=== PATIENT | male | born 1960 | race African-American/Black ===

== ENCOUNTER 2019-03-28 16:26 | Inpatient (IN) ==
[2019-03-28] MEDS ORDERED: THIAMINE 200 MG/2 ML VIAL IV STA (16:45)
[2019-03-28] MEDS ORDERED: SODIUM CHLORIDE 0.9% 2,000 ML IV STA (16:45)
[2019-03-28] MEDS ORDERED: INSULIN REGULAR 100 UNIT/ML IV STA (16:47)
[2019-03-28 16:59] LABS: Basophils % 0.1 % (0.0-0.8); Hematocrit 34.5 VOL% (35.7-47.0); Hemoglobin 11.3 GM/DL (12.0-16.0); Immature Granulocytes % 0.8 %; Immature Granulocytes Absolute 0.12 #; Lymphocytes # 0.5 10*3/uL (1.4-4.0); Lymphocytes % 3.5 % (21.3-54.2); Mean Corpuscular HGB Conc 32.8 GM/DL (32-36); Mean Corpuscular Volume 93.8 FL (87-102); Mean Platelet Volume 10.7 FL (9.6-12.0); Monocytes % 7.6 % (1.7-12.7); Platelet Count 210 T/CUMM (130-400); Red Blood Count 3.68 MC/CUMM (3.8-5.5); Red Cell Distribution Width 12.2 % (9.3-17.3); White Blood Count 15.5 T/CUMM (4-12)
[2019-03-28 17:18] LABS: ABG HCO3 14.4 MMOL/L (20-26); ABG Oxygen Saturation 97.4 % (95-100); ABG PCO2 45.1 MM HG (35-48); ABG TCO2 14.7 MMOL/L (23-27)
[2019-03-28 17:21] LABS: ABG PH 7.149 (7.35-7.45)
[2019-03-28 17:21] LABS: PT Patient Result 10.5 SECS (9.6-12.2)
[2019-03-28] MEDS ORDERED: SODIUM BICARBONATE 50 MEQ/50 ML VIAL IV STA (17:21)
[2019-03-28] MEDS ORDERED: SODIUM BICARBONATE 10 MEQ/10 ML SYRINGE IV ONE (17:22)
[2019-03-28 17:23] LABS: Alanine Aminotransferase 15 U/L (13-56); Albumin 3.5 G/DL (3.4-5.0); Alkaline Phosphatase 100 U/L (45-117); Aspartate Amino Transferase 11 U/L (0-37); Blood Urea Nitrogen 106 MG/DL (7-18); Calcium 8.4 MG/DL (8.5-10.1); Estimated Glom Filtration Rate 15 ML/MIN; Osmolality,Calculated 346.5 MOS/KG (273-304); Total Protein 6.4 G/DL (6.4-8.3)
[2019-03-28 17:30] LABS: Glucose 769 MG/DL (74-106)
[2019-03-28 17:31] LABS: Acanthocytes 1+; Anisocytosis Slight; Lymphocytes 10 % (20-55); Segmented Neutrophils 83 % (50-85); Total Cells Counted 100
[2019-03-28 17:32] LABS: Platelet Estimate Adequate
[2019-03-28 18:16] LABS: Apearance,Urine CLOUDY (Clear); Bacteria,Urine Occasional /HPF (Few); Bilirubin,Urine Negative (Negative); Blood, Urine Small mg/dL (Negative); Glucose,Urine (UA) >=500 mg/dL (Negative); Hyaline Casts,Urine 85 /LPF (0-3); Ketones,Urine 5 mg/dL (Negative); Nitrite,Urine Negative (Negative); Protein,Urine Negative; RBC,Urine 2 /HPF (0-4); Squamous Epithelial Cell,Urine Occasional /HPF (0-10); Urine Color Yellow (Yellow); Urine Specific Gravity 1.014 (1.001-1.035); Urine Urobilinogen < 2.0 EU/DL (0.2-1.0)
[2019-03-28 18:19] LABS: Barbiturates Screen,Urine Negative (Negative); Benzodiazepines Screen,Urine Negative (Negative); Cannabinoid Screen,Urine Negative (Negative); Opiate Screen,Urine Negative (Negative); Phencyclidine Screen,Urine Negative (Negative)
[2019-03-28] MEDS ORDERED: ONDANSETRON 4 MG/2 ML VIAL IV PRN (18:23)
[2019-03-28] MEDS ORDERED: cefTRIAXone 2,000 MG in SODIUM CHLORIDE 0.9% 100 ML IV ONE (18:23)
[2019-03-28] MEDS ORDERED: VANCOMYCIN INJ 750 MG in SODIUM CHLORIDE 0.9% 250 ML IV STA (18:23)
[2019-03-28] MEDS ORDERED: ALBUTEROL 2.5 MG/3 ML NEB RESP TX PRN (18:23)
[2019-03-28] MEDS ORDERED: NOREPINEPHRINE 8 MG in SODIUM CHLORIDE 0.9% 242 ML IV PRN (18:23)
[2019-03-28] MEDS ORDERED: cefTRIAXone 1,000 MG VIAL ONE (18:24)
[2019-03-28] MEDS ORDERED: SODIUM PHOSPHATE IV PRN (18:27)
[2019-03-28] MEDS ORDERED: DEXTROSE 10% 250 ML BAG IV PRN (18:27)
[2019-03-28] MEDS ORDERED: SODIUM BICARB INJ 100 MEQ in STERILE WATER INJ 400 ML IV PRN (18:27)
[2019-03-28] MEDS ORDERED: MAGNESIUM SULF RIDER 4 GM in PREMIX 1 EACH IV PRN (18:27)
[2019-03-28] MEDS ORDERED: SODIUM CHLORIDE 0.9% IV PRN (18:27)
[2019-03-28] MEDS ORDERED: MAGNESIUM SULF RIDER 2 GM in PREMIX 1 EACH IV PRN (18:27)
[2019-03-28] MEDS ORDERED: INSULIN REGULAR 100 UNIT/ML IV ONE (18:27)
[2019-03-28] MEDS ORDERED: POTASSIUM CHLORIDE RIDER 10 MEQ in PREMIX 1 EACH IV PRN (18:27)
[2019-03-28] MEDS ORDERED: INSULIN REGULAR DRIP 100 ML IV SCH (18:30)
[2019-03-28] MEDS ORDERED: NOREPINEPHRINE 4 MG/4 ML VIAL IV ONE (18:31)
[2019-03-28] MEDS: SODIUM CHLOR 0.45% KCL 20 MEQ 20 MEQ/1,000 ML BAG IV SCH ×2 (19:43→23:48)
[2019-03-28 20:09] LABS: Calcium 7.9 MG/DL (8.5-10.1); Osmolality,Calculated 344.3 MOS/KG (273-304)
[2019-03-28] MEDS: FAMOTIDINE 20 MG/2 ML VIAL IV SCH (21:24)
[2019-03-28] MEDS: ENOXAPARIN 30 MG/0.3 ML SYRINGE SUBCUT SCH (21:24)
[2019-03-28] MEDS ORDERED: SODIUM CHLORIDE 0.9% 1,000 ML IV SCH (23:27)
[2019-03-29] LABS: Calcium 7.6 MG/DL (8.5-10.1); Osmolality,Calculated 319.8 MOS/KG (273-304)
[2019-03-29] MEDS: DEXT 5% NACL 0.45% KCL 20 MEQ 20 MEQ/1,000 ML BAG IV SCH ×6 (00:31→23:28)
[2019-03-29] MEDS ORDERED: NOREPINEPHRINE 8 MG in SODIUM CHLORIDE 0.9% 242 ML IV PRN (01:30)
[2019-03-29 03:32] LABS: Basophils % 0.1 % (0.0-0.8); Hematocrit 26.5 VOL% (42.0-52.0); Hemoglobin 9.2 GM/DL (14.0-18.0); Immature Granulocytes % 0.4 %; Immature Granulocytes Absolute 0.07 #; Lymphocytes # 0.8 10*3/uL (1.4-4.0); Mean Corpuscular HGB Conc 34.7 GM/DL (32-36); Mean Platelet Volume 9.9 FL (9.6-12.0); Monocytes % 7.1 % (1.7-12.7); Neutrophils % 87.4 % (38.7-73.9); Platelet Count 177 T/CUMM (130-400); Red Blood Count 3.01 MC/CUMM (3.8-5.5); Red Cell Distribution Width 12.4 % (9.3-17.3); White Blood Count 16.7 T/CUMM (4-12)
[2019-03-29 03:52] LABS: Calcium 7.5 MG/DL (8.5-10.1); Osmolality,Calculated 320.8 MOS/KG (273-304)
[2019-03-29] MEDS: SODIUM CHLOR 0.45% KCL 20 MEQ 20 MEQ/1,000 ML BAG IV SCH (03:55)
[2019-03-29] MEDS ORDERED: DEXTROSE 50% 25 GM/50 ML VIAL IV PRN (06:27)
[2019-03-29] MEDS ORDERED: GLUCAGON 1 MG VIAL IM PRN (06:27)
[2019-03-29] MEDS ORDERED: INSULIN REGULAR 100 UNIT/ML SUBCUT SCH (08:00)
[2019-03-29 08:25] LABS: Calcium 7.6 MG/DL (8.5-10.1); Osmolality,Calculated 318.6 MOS/KG (273-304)
[2019-03-29] MEDS ORDERED: INSULIN REGULAR DRIP 100 ML IV PRN (10:01)
[2019-03-29] MEDS: LACTULOSE 20 GM/30 ML UDCUP PO SCH ×2 (10:07→20:51)
[2019-03-29] MEDS ORDERED: SODIUM CHLORIDE 0.45% 1,000 ML IV SCH (11:27)
[2019-03-29 12:00] LABS: Calcium 7.5 MG/DL (8.5-10.1); Osmolality,Calculated 314.8 MOS/KG (273-304)
[2019-03-29 15:39] LABS: Calcium 7.2 MG/DL (8.5-10.1); Osmolality,Calculated 318.1 MOS/KG (273-304)
[2019-03-29] MEDS: DEXTROSE 10% 250 ML BAG IV PRN (19:52)
[2019-03-29] MEDS: cefTRIAXone 1,000 MG in SYRINGE 1 EACH IV SCH (20:51)
[2019-03-29] MEDS: FAMOTIDINE 20 MG/2 ML VIAL IV SCH (20:51)
[2019-03-29] MEDS: ENOXAPARIN 30 MG/0.3 ML SYRINGE SUBCUT SCH (20:51)
[2019-03-30] MEDS: DEXTROSE 10% 250 ML BAG IV PRN ×2 (00:23→15:30)
[2019-03-30 04:44] LABS: Basophils % 0.2 % (0.0-0.8); Hematocrit 29.5 VOL% (42.0-52.0); Hemoglobin 10.2 GM/DL (14.0-18.0); Immature Granulocytes % 0.6 %; Immature Granulocytes Absolute 0.05 #; Lymphocytes # 0.6 10*3/uL (1.4-4.0); Lymphocytes % 6.6 % (21.2-54.2); Mean Corpuscular HGB Conc 34.6 GM/DL (32-36); Mean Corpuscular Volume 88.9 FL (87-102); Mean Platelet Volume 10.4 FL (9.6-12.0); Monocytes % 3.5 % (1.7-12.7); Neutrophils % 89.1 % (38.7-73.9); Platelet Count 138 T/CUMM (130-400); Red Blood Count 3.32 MC/CUMM (3.8-5.5); Red Cell Distribution Width 12.3 % (9.3-17.3); White Blood Count 8.3 T/CUMM (4-12)
[2019-03-30 05:14] LABS: Band Neutrophils 13 % (0-10); Hypochromasia 1+; Lymphocytes 10 % (20-55); Platelet Estimate Normal; Segmented Neutrophils 75 % (50-85); Total Cells Counted 100
[2019-03-30 05:20] LABS: Calcium 7.6 MG/DL (8.5-10.1); Osmolality,Calculated 298.1 MOS/KG (273-304)
[2019-03-30] MEDS: DEXT 5% NACL 0.45% KCL 20 MEQ 20 MEQ/1,000 ML BAG IV SCH ×2 (07:29→07:30)
[2019-03-30] MEDS ORDERED: CALCIUM GLUCONATE 1,000 MG in SODIUM CHLORIDE 0.9% 100 ML IV ONE (07:53)
[2019-03-30] MEDS ORDERED: SODIUM CHLORIDE 0.9% 1,000 ML IV ONE (07:55)
[2019-03-30] MEDS: LACTULOSE 20 GM/30 ML UDCUP PO SCH ×2 (08:38→20:27)
[2019-03-30] MEDS: ATORVASTATIN 40 MG TABLET PO SCH (08:38)
[2019-03-30] MEDS: INSULIN LISPRO 100 UNIT/ML SUBCUT SCH ×4 (08:39→20:36)
[2019-03-30] MEDS: RANITIDINE 150 MG TABLET PO SCH (08:39)
[2019-03-30] MEDS: ASPIRIN 325 MG TABLET PO SCH (08:39)
[2019-03-30] MEDS: CALCIUM CARBONATE CHEW 500 MG TABLET PO SCH ×2 (08:39→20:27)
[2019-03-30] MEDS ORDERED: ZIPRASIDONE 20 MG/1 ML VIAL IM PRN (10:48)
[2019-03-30] MEDS ORDERED: INSULIN LISPRO 100 UNIT/ML SUBCUT SCH (11:30)
[2019-03-30] MEDS: cefTRIAXone 1,000 MG in SYRINGE 1 EACH IV SCH (20:27)
[2019-03-30] MEDS: ENOXAPARIN 30 MG/0.3 ML SYRINGE SUBCUT SCH (20:27)
[2019-03-31 06:35] LABS: Basophils % 0.3 % (0.0-0.8); Hematocrit 30.6 VOL% (42.0-52.0); Hemoglobin 10.2 GM/DL (14.0-18.0); Immature Granulocytes % 1.2 %; Immature Granulocytes Absolute 0.08 #; Lymphocytes # 0.4 10*3/uL (1.4-4.0); Lymphocytes % 5.2 % (21.2-54.2); Mean Corpuscular HGB Conc 33.3 GM/DL (32-36); Mean Corpuscular Volume 91.6 FL (87-102); Mean Platelet Volume 11.5 FL (9.6-12.0); Monocytes % 3.6 % (1.7-12.7); Neutrophils % 89.7 % (38.7-73.9); Platelet Count 145 T/CUMM (130-400); Red Blood Count 3.34 MC/CUMM (3.8-5.5); Red Cell Distribution Width 12.9 % (9.3-17.3); White Blood Count 6.7 T/CUMM (4-12)
[2019-03-31 06:56] LABS: Band Neutrophils 10 % (0-10); Lymphocytes 6 % (20-55); Segmented Neutrophils 80 % (50-85); Total Cells Counted 100
[2019-03-31 06:56] LABS: Calcium 8.5 MG/DL (8.5-10.1); Osmolality,Calculated 290.1 MOS/KG (273-304)
[2019-03-31 06:57] LABS: Hypochromasia 1+; Platelet Estimate Adequate
[2019-03-31] MEDS: ASPIRIN 325 MG TABLET PO SCH (09:12)
[2019-03-31] MEDS: CALCIUM CARBONATE CHEW 500 MG TABLET PO SCH ×2 (09:12→21:21)
[2019-03-31] MEDS: LACTULOSE 20 GM/30 ML UDCUP PO SCH ×2 (09:12→21:21)
[2019-03-31] MEDS: RANITIDINE 150 MG TABLET PO SCH (09:13)
[2019-03-31] MEDS: ATORVASTATIN 40 MG TABLET PO SCH (09:13)
[2019-03-31] MEDS: INSULIN LISPRO 100 UNIT/ML SUBCUT SCH (09:17)
[2019-03-31] MEDS ORDERED: POTASSIUM CHLORIDE RIDER 20 MEQ in PREMIX 1 EACH IV PRN (09:59)
[2019-03-31] MEDS ORDERED: methylPREDNISolone SOD SUC 40 MG/1 ML VIAL IV ONE (10:00)
[2019-03-31] MEDS ORDERED: MEPERIDINE 25 MG/1 ML VIAL IV PRN (10:00)
[2019-03-31] MEDS ORDERED: VANCOMYCIN INJ 1,250 MG in SODIUM CHLORIDE 0.9% 250 ML IV ONE (10:00)
[2019-03-31 10:03] LABS: Basophils % 0.7 % (0.0-0.8); Hematocrit 31.7 VOL% (42.0-52.0); Hemoglobin 10.3 GM/DL (14.0-18.0); Immature Granulocytes % 0.9 %; Immature Granulocytes Absolute 0.05 #; Lymphocytes # 0.9 10*3/uL (1.4-4.0); Lymphocytes % 16.2 % (21.2-54.2); Mean Corpuscular HGB Conc 32.5 GM/DL (32-36); Mean Corpuscular Volume 93.8 FL (87-102); Mean Platelet Volume 11.4 FL (9.6-12.0); Monocytes % 3.7 % (1.7-12.7); Neutrophils % 78.5 % (38.7-73.9); Platelet Count 120 T/CUMM (130-400); Red Blood Count 3.38 MC/CUMM (3.8-5.5); Red Cell Distribution Width 12.9 % (9.3-17.3); White Blood Count 5.4 T/CUMM (4-12)
[2019-03-31] MEDS: NOREPINEPHRINE 8 MG in SODIUM CHLORIDE 0.9% 242 ML IV PRN ×3 (10:15→19:00)
[2019-03-31 10:16] LABS: PT Patient Result 11.3 SECS (9.6-12.2)
[2019-03-31] MEDS ORDERED: NOREPINEPHRINE 4 MG/4 ML VIAL IV ONE (10:16)
[2019-03-31] MEDS ORDERED: SODIUM CHLORIDE 0.9% 1,000 ML IV ONE ×3 (10:19→23:04)
[2019-03-31 10:21] LABS: Band Neutrophils 4 % (0-10); Lymphocytes 21 % (20-55); Segmented Neutrophils 69 % (50-85); Total Cells Counted 100
[2019-03-31 10:21] LABS: ABG Base Excess -4.7 MMOL/L (-2.5-2.5); ABG HCO3 20.5 MMOL/L (20-26); ABG Oxygen Saturation 99.3 % (95-100); ABG PCO2 60.7 MM HG (35-48); ABG TCO2 22.5 MMOL/L (23-27)
[2019-03-31 10:22] LABS: Ovalocytes Slight
[2019-03-31 10:23] LABS: Partial Thromboplastin Time 44.6 SECS (20.8-36.0)
[2019-03-31 10:23] LABS: ABG PH 7.205 (7.35-7.45)
[2019-03-31 10:37] LABS: Blood Urea Nitrogen 30 MG/DL (7-18); Calcium 8.3 MG/DL (8.5-10.1); Estimated Glom Filtration Rate 56 ML/MIN; Glucose 223 MG/DL (74-106); Osmolality,Calculated 298.8 MOS/KG (273-304)
[2019-03-31 10:38] LABS: Troponin I 0.113 NG/ML (0.00-0.045)
[2019-03-31] MEDS ORDERED: CISATRACURIUM 10 MG/5 ML VIAL IV ONE (11:00)
[2019-03-31] MEDS: fentaNYL INJ 1,250 MCG in SODIUM CHLORIDE 0.9% 225 ML IV PRN (11:16)
[2019-03-31] MEDS: CISATRACURIUM 200 MG in SODIUM CHLORIDE 0.9% 180 ML IV SCH (11:50)
[2019-03-31] MEDS ORDERED: SODIUM BICARBONATE 50 MEQ/50 ML SYRINGE IV ONE (12:57)
[2019-03-31] MEDS ORDERED: AMIODARONE 150 MG/3 ML VIAL ONE (12:57)
[2019-03-31] MEDS ORDERED: AMIODARONE INJ 150 MG in DEXTROSE 5% 100 ML IV ONE (13:04)
[2019-03-31 13:07] LABS: ABG Base Excess -7.8 MMOL/L (-2.5-2.5); ABG Oxygen Saturation 89.3 % (95-100); ABG PCO2 50.6 MM HG (35-48); ABG PH 7.211 (7.35-7.45); ABG PO2 67.5 MM HG (80-95); ABG TCO2 18.8 MMOL/L (23-27)
[2019-03-31] MEDS ORDERED: SODIUM BICARBONATE 50 MEQ/50 ML VIAL IV ONE (13:07)
[2019-03-31 13:14] LABS: Hematocrit 31.8 VOL% (42.0-52.0); Hemoglobin 10.1 GM/DL (14.0-18.0); Immature Granulocytes Absolute 0.01 #; Lymphocytes # 0.1 10*3/uL (1.4-4.0); Lymphocytes % 10.8 % (21.2-54.2); Mean Corpuscular HGB Conc 31.8 GM/DL (32-36); Mean Corpuscular Volume 95.2 FL (87-102); Monocytes % 6.9 % (1.7-12.7); Neutrophils % 80.3 % (38.7-73.9); Platelet Count 159 T/CUMM (130-400); Red Blood Count 3.34 MC/CUMM (3.8-5.5)
[2019-03-31 13:29] LABS: Calcium 8.1 MG/DL (8.5-10.1)
[2019-03-31] MEDS ORDERED: HEPARIN DRIP 25,000 UNITS/500 ML PREMIX IV SCH (13:30)
[2019-03-31] MEDS ORDERED: AMIODARONE INJ 450 MG in DEXTROSE 5% 241 ML IV SCH (13:30)
[2019-03-31 13:33] LABS: Albumin 1.8 G/DL (3.4-5.0); Bilirubin,Total 0.7 MG/DL (0.2-1.0); Calcium 7.8 MG/DL (8.5-10.1); Osmolality,Calculated 300.8 MOS/KG (273-304); Total Protein 4.8 G/DL (6.4-8.3)
[2019-03-31 13:38] LABS: Troponin I 0.119 NG/ML (0.00-0.045)
[2019-03-31] MEDS ORDERED: VANCOMYCIN INJ 1,000 MG in SODIUM CHLORIDE 0.9% 250 ML IV PRN (14:00)
[2019-03-31 14:15] LABS: Band Neutrophils 15 % (0-10); Lymphocytes 16 % (20-55); Metamyelocytes 13 %; Nucleated Red Blood Cells 3 (0-5); Segmented Neutrophils 48 % (50-85); Total Cells Counted 100
[2019-03-31 14:16] LABS: Anisocytosis Slight; Burr Cells 3+; Macrocytosis Slight; Platelet Estimate Normal
[2019-03-31] MEDS: MIDAZOLAM 100 MG in SODIUM CHLORIDE 0.9% 80 ML IV PRN (14:29)
[2019-03-31] MEDS ORDERED: PHENYLEPHRINE DRIP 40 MG/250 ML PREMIX IV PRN (14:43)
[2019-03-31] MEDS: PANTOPRAZOLE 40 MG VIAL IV SCH (14:51)
[2019-03-31] MEDS: INSULIN REGULAR 100 UNIT/ML IV SCH ×4 (15:03→23:25)
[2019-03-31 16:42] LABS: Troponin I 0.161 NG/ML (0.00-0.045)
[2019-03-31] MEDS: MINERAL OIL/PETROLATUM OPH OINT 3.5 GM TUBE BOTH EYES SCH ×2 (17:36→21:26)
[2019-03-31 18:19] LABS: Troponin I 0.151 NG/ML (0.00-0.045)
[2019-03-31 18:25] LABS: Hematocrit 30.4 VOL% (42.0-52.0); Hemoglobin 9.8 GM/DL (14.0-18.0); Lymphocytes # 0.1 10*3/uL (1.4-4.0); Mean Corpuscular HGB Conc 32.2 GM/DL (32-36); Mean Corpuscular Volume 94.1 FL (87-102); Mean Platelet Volume 10.4 FL (9.6-12.0); Monocytes % 5.7 % (1.7-12.7); Neutrophils % 74.3 % (38.7-73.9); Platelet Count 102 T/CUMM (130-400); Red Blood Count 3.23 MC/CUMM (3.8-5.5); Red Cell Distribution Width 12.9 % (9.3-17.3)
[2019-03-31 18:32] LABS: White Blood Count 0.7 T/CUMM (4-12)
[2019-03-31 18:57] LABS: Band Neutrophils 4 % (0-10); Lymphocytes 16 % (20-55); Metamyelocytes 20 %; Segmented Neutrophils 48 % (50-85); Total Cells Counted 100
[2019-03-31 18:58] LABS: Burr Cells 2+; Platelet Estimate Adequate; Poikilocytosis 2+
[2019-03-31] MEDS: PHENYLEPHRINE INJ 160 MG in SODIUM CHLORIDE 0.9% 234 ML IV PRN (20:00)
[2019-03-31 20:07] LABS: Amorphous Crystals,Urine Occasional /HPF (Few); Apearance,Urine CLOUDY (Clear); Bilirubin,Urine Negative (Negative); Blood, Urine Moderate mg/dL (Negative); Glucose,Urine (UA) >=500 mg/dL (Negative); Hyaline Casts,Urine 1 /LPF (0-3); Ketones,Urine 5 mg/dL (Negative); Mucus,Urine Occasional /LPF (Occasional); Nitrite,Urine Negative (Negative); Protein,Urine Negative; Squamous Epithelial Cell,Urine Occasional /HPF (0-10); Urine Color Yellow (Yellow); Urine Specific Gravity 1.022 (1.001-1.035); Urine Urobilinogen < 2.0 EU/DL (0.2-1.0)
[2019-03-31] MEDS: methylPREDNISolone SOD SUC 40 MG/1 ML VIAL IV SCH (20:39)
[2019-03-31] MEDS: cefTRIAXone 1,000 MG in SYRINGE 1 EACH IV SCH (20:39)
[2019-03-31 20:44] LABS: Blood Urea Nitrogen 30 MG/DL (7-18); Estimated Glom Filtration Rate 67 ML/MIN; Glucose 248 MG/DL (74-106); Osmolality,Calculated 305.4 MOS/KG (273-304)
[2019-03-31 20:45] LABS: Calcium 7.6 MG/DL (8.5-10.1)
[2019-03-31] MEDS: SODIUM CHLORIDE 0.9% 1,000 ML IV SCH (21:23)
[2019-03-31] MEDS: AMIODARONE INJ 450 MG in DEXTROSE 5% 241 ML IV SCH (21:52)
[2019-03-31] MEDS: NOREPINEPHRINE 16 MG in SODIUM CHLORIDE 0.9% 234 ML IV PRN (22:11)
[2019-03-31 22:47] LABS: ABG HCO3 20.1 MMOL/L (20-26); ABG Oxygen Saturation 91.3 % (95-100); ABG PCO2 42.2 MM HG (35-48); ABG PH 7.295 (7.35-7.45); ABG PO2 67.1 MM HG (80-95); ABG TCO2 21.4 MMOL/L (23-27)
[2019-03-31 23:46] LABS: INR 1.2; PT Patient Result 13.4 SECS (9.6-12.2)
[2019-04-01 00:40] LABS: Partial Thromboplastin Time > 320.0 SECS (20.8-36.0)
[2019-04-01 00:40] LABS: Blood Urea Nitrogen 27 MG/DL (7-18); Calcium 6.9 MG/DL (8.5-10.1); Estimated Glom Filtration Rate 73 ML/MIN; Glucose 185 MG/DL (74-106); Osmolality,Calculated 303.3 MOS/KG (273-304)
[2019-04-01 01:10] LABS: Basophils % 1.2 % (0.0-0.8); Hematocrit 27.7 VOL% (42.0-52.0); Hemoglobin 9.1 GM/DL (14.0-18.0); Immature Granulocytes % 1.2 %; Immature Granulocytes Absolute 0.01 #; Lymphocytes # 0.1 10*3/uL (1.4-4.0); Lymphocytes % 13.6 % (21.2-54.2); Mean Corpuscular HGB Conc 32.9 GM/DL (32-36); Mean Platelet Volume 10.9 FL (9.6-12.0); Monocytes % 9.9 % (1.7-12.7); Neutrophils % 74.1 % (38.7-73.9); Platelet Count 100 T/CUMM (130-400); Red Blood Count 2.98 MC/CUMM (3.8-5.5); Red Cell Distribution Width 13.1 % (9.3-17.3)
[2019-04-01 01:17] LABS: White Blood Count 0.8 T/CUMM (4-12)
[2019-04-01] MEDS: fentaNYL INJ 1,250 MCG in SODIUM CHLORIDE 0.9% 225 ML IV PRN ×3 (01:28→21:22)
[2019-04-01 02:31] LABS: Band Neutrophils 8 % (0-10); Eosinophils 2 % (0-10); Lymphocytes 12 % (20-55); Metamyelocytes 30 %; Myelocytes 8 %; Segmented Neutrophils 28 % (50-85)
[2019-04-01 02:43] LABS: Hypochromasia Slight; Platelet Estimate Decreased
[2019-04-01 02:44] LABS: Burr Cells 2+; Total Cells Counted 100
[2019-04-01] MEDS: PHENYLEPHRINE INJ 160 MG in SODIUM CHLORIDE 0.9% 234 ML IV PRN ×3 (03:17→18:33)
[2019-04-01 03:20] LABS: ABG Base Excess -5.9 MMOL/L (-2.5-2.5); ABG HCO3 19.6 MMOL/L (20-26); ABG Oxygen Saturation 98.7 % (95-100); ABG PCO2 43.2 MM HG (35-48); ABG PH 7.289 (7.35-7.45); ABG TCO2 18.1 MMOL/L (23-27)
[2019-04-01] MEDS: INSULIN REGULAR 100 UNIT/ML IV SCH ×5 (03:23→21:27)
[2019-04-01] MEDS: NOREPINEPHRINE 16 MG in SODIUM CHLORIDE 0.9% 234 ML IV PRN ×2 (05:33→16:21)
[2019-04-01 06:05] LABS: Hematocrit 27.2 VOL% (42.0-52.0); Hemoglobin 8.7 GM/DL (14.0-18.0); Lymphocytes # 0.1 10*3/uL (1.4-4.0); Lymphocytes % 13.3 % (21.2-54.2); Mean Corpuscular Volume 93.5 FL (87-102); Mean Platelet Volume 10.9 FL (9.6-12.0); Monocytes % 7.1 % (1.7-12.7); Neutrophils % 79.6 % (38.7-73.9); Red Blood Count 2.91 MC/CUMM (3.8-5.5)
[2019-04-01 06:07] LABS: Platelet Count 88 T/CUMM (130-400)
[2019-04-01] MEDS: SODIUM CHLORIDE 0.9% 1,000 ML IV SCH (06:15)
[2019-04-01 06:35] LABS: Blood Urea Nitrogen 28 MG/DL (7-18); Calcium 6.8 MG/DL (8.5-10.1); Estimated Glom Filtration Rate 85 ML/MIN; Glucose 156 MG/DL (74-106); Osmolality,Calculated 302.3 MOS/KG (273-304)
[2019-04-01 06:36] LABS: Troponin I 0.114 NG/ML (0.00-0.045)
[2019-04-01 06:57] LABS: Anisocytosis 1+; Band Neutrophils 38 % (0-10); Lymphocytes 20 % (20-55); Macrocytosis 1+; Metamyelocytes 16 %; Myelocytes 6 %; Platelet Estimate Decreased; Segmented Neutrophils 6 % (50-85); Total Cells Counted 100
[2019-04-01 06:59] LABS: Atypical Lymphocytes Few; Hypochromasia 2+
[2019-04-01] MEDS: PANTOPRAZOLE 40 MG VIAL IV SCH (08:32)
[2019-04-01] MEDS: methylPREDNISolone SOD SUC 40 MG/1 ML VIAL IV SCH ×2 (08:41→21:32)
[2019-04-01] MEDS ORDERED: AMIODARONE 200 MG TABLET PO SCH (09:00)
[2019-04-01] MEDS: ASPIRIN 325 MG TABLET PO SCH (09:05)
[2019-04-01] MEDS: LACTULOSE 20 GM/30 ML UDCUP PO SCH (09:06)
[2019-04-01] MEDS: ATORVASTATIN 40 MG TABLET PO SCH (09:07)
[2019-04-01] MEDS: MINERAL OIL/PETROLATUM OPH OINT 3.5 GM TUBE BOTH EYES SCH ×2 (09:07→21:37)
[2019-04-01] MEDS: CALCIUM CARBONATE CHEW 500 MG TABLET PO SCH (09:36)
[2019-04-01] MEDS: SODIUM CHLORIDE 0.45% 1,000 ML IV SCH ×2 (10:26→18:10)
[2019-04-01] MEDS ORDERED: POTASSIUM PHOSPHATE 15 MMOL in SODIUM CHLORIDE 0.9% 100 ML IV ONE (10:34)
[2019-04-01] MEDS: CISATRACURIUM 200 MG in SODIUM CHLORIDE 0.9% 180 ML IV SCH (10:47)
[2019-04-01] MEDS ORDERED: VANCOMYCIN INJ 1,000 MG in SODIUM CHLORIDE 0.9% 250 ML IV ONE (11:00)
[2019-04-01] MEDS: ASPIRIN 300 MG SUPP RECTAL SCH (11:32)
[2019-04-01] MEDS ORDERED: INSULIN REGULAR 100 UNIT/ML IV SCH (12:00)
[2019-04-01 12:03] LABS: Basophils % 1.5 % (0.0-0.8); Hematocrit 26.7 VOL% (42.0-52.0); Hemoglobin 8.8 GM/DL (14.0-18.0); Immature Granulocytes % 0.7 %; Immature Granulocytes Absolute 0.01 #; Lymphocytes # 0.1 10*3/uL (1.4-4.0); Lymphocytes % 7.3 % (21.2-54.2); Mean Corpuscular Volume 91.8 FL (87-102); Monocytes % 5.8 % (1.7-12.7); Neutrophils % 84.7 % (38.7-73.9); Platelet Count 83 T/CUMM (130-400); Red Blood Count 2.91 MC/CUMM (3.8-5.5); Red Cell Distribution Width 13.2 % (9.3-17.3); White Blood Count 1.4 T/CUMM (4-12)
[2019-04-01] MEDS: AMIODARONE INJ 450 MG in DEXTROSE 5% 241 ML IV SCH ×2 (12:07→14:16)
[2019-04-01 12:21] LABS: CKMB % 4.4 %
[2019-04-01 12:22] LABS: Troponin I 0.106 NG/ML (0.00-0.045)
[2019-04-01 12:26] LABS: Calcium 6.9 MG/DL (8.5-10.1); Osmolality,Calculated 298.6 MOS/KG (273-304)
[2019-04-01 13:29] LABS: Band Neutrophils 30 % (0-10); Lymphocytes 15 % (20-55); Metamyelocytes 15 %; Nucleated Red Blood Cells 1 (0-5); Segmented Neutrophils 28 % (50-85)
[2019-04-01 13:30] LABS: Platelet Estimate Decreased; Polychromasia Slight; Total Cells Counted 101
[2019-04-01] MEDS ORDERED: ACETAMINOPHEN 325 MG/10.15 ML UDCUP NG PRN (16:00)
[2019-04-01] MEDS: MIDAZOLAM 100 MG in SODIUM CHLORIDE 0.9% 80 ML IV PRN (17:31)
[2019-04-01] MEDS: cefTRIAXone 1,000 MG in SYRINGE 1 EACH IV SCH (21:36)
[2019-04-02] MEDS: INSULIN REGULAR 100 UNIT/ML IV SCH ×7 (00:41→12:06)
[2019-04-02] MEDS: NOREPINEPHRINE 16 MG in SODIUM CHLORIDE 0.9% 234 ML IV PRN ×4 (00:41→20:52)
[2019-04-02] MEDS: SODIUM CHLORIDE 0.45% 1,000 ML IV SCH ×3 (02:35→19:02)
[2019-04-02 02:36] LABS: Basophils % 0.9 % (0.0-0.8); Hematocrit 24.4 VOL% (42.0-52.0); Hemoglobin 7.8 GM/DL (14.0-18.0); Immature Granulocytes % 0.7 %; Immature Granulocytes Absolute 0.03 #; Lymphocytes # 0.1 10*3/uL (1.4-4.0); Lymphocytes % 2.6 % (21.2-54.2); Mean Corpuscular Volume 94.6 FL (87-102); Mean Platelet Volume 10.3 FL (9.6-12.0); NRBC # 0.03 10*3/uL; Neutrophils % 91.8 % (38.7-73.9); Platelet Count 82 T/CUMM (130-400); Red Blood Count 2.58 MC/CUMM (3.8-5.5); Red Cell Distribution Width 13.4 % (9.3-17.3); White Blood Count 4.2 T/CUMM (4-12)
[2019-04-02] MEDS: PHENYLEPHRINE INJ 160 MG in SODIUM CHLORIDE 0.9% 234 ML IV PRN ×3 (02:36→19:04)
[2019-04-02 02:45] LABS: INR 1.3; PT Patient Result 13.6 SECS (9.6-12.2)
[2019-04-02] MEDS ORDERED: SODIUM CHLORIDE 0.9% 500 ML IV ONE ×2 (02:47→04:24)
[2019-04-02 02:53] LABS: ABG Base Excess -10.2 MMOL/L (-2.5-2.5); ABG HCO3 16.2 MMOL/L (20-26); ABG Oxygen Saturation 99.5 % (95-100); ABG PH 7.235 (7.35-7.45); ABG TCO2 15.8 MMOL/L (23-27)
[2019-04-02 03:05] LABS: Anisocytosis 1+; Band Neutrophils 31 % (0-10); Lymphocytes 16 % (20-55); Myelocytes 1 %; Segmented Neutrophils 31 % (50-85); Total Cells Counted 100
[2019-04-02 03:06] LABS: Ovalocytes Few; Platelet Estimate Decreased
[2019-04-02 03:12] LABS: Albumin 1.2 G/DL (3.4-5.0); Bilirubin,Total 0.5 MG/DL (0.2-1.0); CKMB % 5.5 %; Calcium 6.4 MG/DL (8.5-10.1); Osmolality,Calculated 290.1 MOS/KG (273-304)
[2019-04-02 03:16] LABS: Troponin I 0.099 NG/ML (0.00-0.045)
[2019-04-02] MEDS ORDERED: SODIUM CHLORIDE 0.9% 1,000 ML IV PRN (04:24)
[2019-04-02 04:43] LABS: Basophils % 0.6 % (0.0-0.8); Hematocrit 23.1 VOL% (42.0-52.0); Hemoglobin 7.3 GM/DL (14.0-18.0); Immature Granulocytes % 1.4 %; Immature Granulocytes Absolute 0.07 #; Lymphocytes # 0.1 10*3/uL (1.4-4.0); Lymphocytes % 2.6 % (21.2-54.2); Mean Corpuscular HGB Conc 31.6 GM/DL (32-36); Mean Corpuscular Volume 95.5 FL (87-102); Mean Platelet Volume 11.3 FL (9.6-12.0); Monocytes % 3.8 % (1.7-12.7); NRBC # 0.03 10*3/uL; Neutrophils % 91.6 % (38.7-73.9); Platelet Count 85 T/CUMM (130-400); Red Blood Count 2.42 MC/CUMM (3.8-5.5); Red Cell Distribution Width 13.2 % (9.3-17.3)
[2019-04-02] MEDS: AMIODARONE INJ 450 MG in DEXTROSE 5% 241 ML IV SCH (04:52)
[2019-04-02 04:56] LABS: Albumin 1.1 G/DL (3.4-5.0); Bilirubin,Total 0.5 MG/DL (0.2-1.0); Calcium 6.3 MG/DL (8.5-10.1); Osmolality,Calculated 290.1 MOS/KG (273-304); Total Protein 3.8 G/DL (6.4-8.3)
[2019-04-02 07:21] LABS: Band Neutrophils 55 % (0-10); Lymphocytes 8 % (20-55); Metamyelocytes 19 %; Myelocytes 7 %; Segmented Neutrophils 6 % (50-85); Total Cells Counted 100
[2019-04-02 07:22] LABS: Anisocytosis Slight; Burr Cells 2+; Nucleated Red Blood Cells 1 (0-5); Platelet Estimate Decreased
[2019-04-02 07:23] LABS: Poikilocytosis Slight
[2019-04-02] MEDS: methylPREDNISolone SOD SUC 40 MG/1 ML VIAL IV SCH ×2 (09:10→21:09)
[2019-04-02] MEDS: MINERAL OIL/PETROLATUM OPH OINT 3.5 GM TUBE BOTH EYES SCH ×2 (09:13→21:04)
[2019-04-02] MEDS: ASPIRIN 300 MG SUPP RECTAL SCH (09:13)
[2019-04-02] MEDS: PANTOPRAZOLE 40 MG VIAL IV SCH (09:13)
[2019-04-02 09:31] VITALS: BP 101/51
[2019-04-02] MEDS: INSULIN REGULAR 100 UNIT/ML SUBCUT SCH ×4 (12:06→23:45)
[2019-04-02 12:37] LABS: Hematocrit 32.6 VOL% (42.0-52.0); Hemoglobin 10.7 GM/DL (14.0-18.0)
[2019-04-02] MEDS: cefTRIAXone 1,000 MG in SYRINGE 1 EACH IV SCH (21:09)
[2019-04-03] MEDS: SODIUM CHLORIDE 0.45% 1,000 ML IV SCH (03:12)
[2019-04-03] MEDS: PHENYLEPHRINE INJ 160 MG in SODIUM CHLORIDE 0.9% 234 ML IV PRN (03:14)
[2019-04-03 03:23] LABS: ABG Base Excess -18.8 MMOL/L (-2.5-2.5); ABG HCO3 10.6 MMOL/L (20-26); ABG Oxygen Saturation 99.1 % (95-100); ABG PCO2 37.3 MM HG (35-48); ABG TCO2 10.4 MMOL/L (23-27)
[2019-04-03 03:26] LABS: ABG PH 7.068 (7.35-7.45)
[2019-04-03 03:29] LABS: Basophils # 0.2 10*3/uL (0.0-0.2); Basophils % 0.8 % (0.0-0.8); Hematocrit 29.8 VOL% (42.0-52.0); Hemoglobin 9.5 GM/DL (14.0-18.0); Immature Granulocytes % 3.2 %; Immature Granulocytes Absolute 0.63 #; Lymphocytes # 0.2 10*3/uL (1.4-4.0); Lymphocytes % 0.9 % (21.2-54.2); Mean Corpuscular HGB Conc 31.9 GM/DL (32-36); Mean Corpuscular Volume 95.2 FL (87-102); Mean Platelet Volume 10.9 FL (9.6-12.0); NRBC # 0.09 10*3/uL; Neutrophils % 92.1 % (38.7-73.9); Platelet Count 86 T/CUMM (130-400); Red Blood Count 3.13 MC/CUMM (3.8-5.5); White Blood Count 19.7 T/CUMM (4-12)
[2019-04-03] MEDS: NOREPINEPHRINE 16 MG in SODIUM CHLORIDE 0.9% 234 ML IV PRN (03:40)
[2019-04-03 03:41] LABS: Albumin 1.3 G/DL (3.4-5.0); Bilirubin,Total 0.6 MG/DL (0.2-1.0); Calcium 6.2 MG/DL (8.5-10.1); Osmolality,Calculated 291.5 MOS/KG (273-304); Total Protein 4.3 G/DL (6.4-8.3)
[2019-04-03] MEDS ORDERED: SODIUM BICARBONATE 50 MEQ/50 ML VIAL IV ONE (04:00)
[2019-04-03 04:05] LABS: Band Neutrophils 6 % (0-10); Lymphocytes 1 % (20-55); Platelet Estimate Decreased; Segmented Neutrophils 90 % (50-85); Total Cells Counted 100
[2019-04-03 04:06] LABS: Anisocytosis 1+; Microcytosis Slight
[2019-04-03] MEDS: INSULIN REGULAR 100 UNIT/ML SUBCUT SCH (04:06)
[2019-04-03 04:07] LABS: Spherocytes Slight
== END 2019-04-03 04:33 | disposition expired | DRG 720 ==
LOC: EDBD → EDSEX → EDUNIT# → N.ED 16:26 → N.EDINP 18:23 → SUATTDRO 18:23 → N.CC 18:43 → N.4E 03-30 17:18 → N.CC 03-31 09:38
PROVIDERS: ADMIT Family Medicine; ATTEND Internal Medicine